=== PATIENT | female | born 1995 | race Caucasian/White ===

== ENCOUNTER 2016-10-09 17:19 | Emergency (ER) | payer OTHER ==
--- NOTE | 2016-10-09 21:46 | ED ORDER SUMMARY ---
..... Patient: LAINE MAC OrderSheet [facility] VisitID: [id number] [address] [place] [address] 21y, F Registration Date/Time: 10/09/2016 ORDER SHEET Weight: 44.4 kg (stated) Allergies: No Known Drug Allergy GENERAL ORDERS: CBC w Diff Urgent (19:19 10/09/2016 Gilberto BALLESTEROS) (Ack 19:22 Isabella) (19:54 DDean R.N.) CMP Urgent (19:10/09/2016 Gilberto BALLESTEROS) (Ack 19:22 Isabella) (19:54 DDean R.N.) UA-Culture if indicated Urgent (19:19 10/09/2016 Gilberto BALLESTEROS) (Ack 19:22 Isabella) (19:22 Isabella) Urine Urgent (19:10/09/2016 Gilberto BALLESTEROS) (Ack 19:22 Isabella) (19:54 DDean R.N.) Lipase Urgent (19:10/09/2016 Gilberto BALLESTEROS) (Ack 19:22 Isabella) (19:54 DDean R.N.) MEDICATION ORDERS: IV FLUIDS: IV NS : initial bolus none -, then 1000 mL/hr for 2h (NOW); Urgent (19:19 10/09/2016 Gilberto BALLESTEROS) (Ack 19:24 DDean R.N.) (19:57 DDean R.N.) Zofran IV 8 mg (NOW) (19:20 10/09/2016 Gilberto BALLESTEROS) (Ack 19:24 DDean R.N.) (19:56 DDean R.N.) ORDER SHEET NOTES: [Electronically signed by Cinthya Bianchi R.N. (22:22 10/09/2016)] [Electronically signed by Brady French MD (09:57 10/12/2016)] [Electronically locked/signed by Cinthya Bianchi R.N. (22:22 10/09/2016)]
--- NOTE | 2016-10-09 21:46 | ED CLINICAL REPORT ---
Clinical Report - Physicians/Mid Levels [facility] [address] [place] [address] 10/09/2016 17:19 Patient: LAINE BARCENAS Time Seen: 19:11. Arrived- By private vehicle. Historian- patient. HISTORY OF PRESENT ILLNESS Chief Complaint: ABDOMINAL PAIN. At its maximum, severity described as moderate. When seen in the E.D., severity described as moderate. Modifying factors- (Worse with anxiety). This started several years ago, worse for the last few days and is still present. It has been waxing/waning. It is described as "pain" and it is described as generalized in location. The patient has had nausea and vomiting. No diarrhea. Similar symptoms previously: Many times. REVIEW OF SYSTEMS Uses control pills. No constipation, black stools, difficulty with urination, pain with urination or fever. No headache, sore throat, blurred vision, chest pain or difficulty breathing. No cough, joint pain, chills or back pain. PAST HISTORY PCP: Semar PROBLEMS: Vomiting. Abdominal Pain. Allergic Rhinitis ADDITIONAL SURGERIES: no known surgeries. SOCIAL HISTORY History of drug use daily: marijuana. ADDITIONAL NOTES The nursing notes have been reviewed. PHYSICAL EXAM Vital Signs: 10/09/2016 22:05 BP: 90/58. HR: 70. RR: 16. O2 saturation: 99%. Pain level now: 08/23. 10/09/2016 20:25 BP: 98/63. HR: 73. RR: 16. O2 saturation: 99%. Pain level now: 08/23. 10/09/2016 18:45 BP: 90/53. HR: 68. RR: 18. O2 saturation: 99%. Temp: 98.2 F. Pain level now: 10/23. Appearance: Alert. No acute distress. Eyes: Pupils equal, round and reactive to light. Eyes normal inspection. ENT: Pharynx normal. Neck: Normal inspection. Neck supple. CVS: Normal heart rate and rhythm. Heart sounds normal. Respiratory: No respiratory distress. Breath sounds normal. Abdomen: Soft. Mild tenderness diffusely. Bowel sounds normal. No organomegaly. No mass. Femoral pulses equal. Back: Normal inspection. Skin: Skin warm. Normal skin color. Extremities: Extremities exhibit normal ROM. No lower extremity edema. LABS, X-RAYS, AND EKG Laboratory Tests: UA-Culture if indicated: (KLAUS: 10/09/2016 18:30) ( [employer] 10/09/2016 20:16) Final results Test Result Flag Units (Reference) URINE COLOR YELLOW URINE APPEARANCE CLEAR URINE GLUCOSE NEGATIVE (NEGATIVE) URINE BILIRUBIN NEGATIVE (NEGATIVE) URINE KETONE NEGATIVE (NEGATIVE) URINE SPECIFIC GRAVITY >= 1.030 (1.010-1.030) URINE PH 6.5 (5.0-8.0) URINE PROTEIN 2+ (NEGATIVE) URINE UROBILINOGEN 0.2 EU/dL (0.2-1.0) URINE NITRITE NEGATIVE (NEGATIVE) URINE BLOOD NEGATIVE (NEGATIVE) URINE LEUK ESTERASE NEGATIVE (NEGATIVE) URINE RBC NONE SEEN rbc/hpf (0-1) URINE WBC 0-1 wbc/hpf (0-1) URINE EPITHELIAL CELLS 0-1 EPI/hpf (0-5) URINE BACTERIA FEW (1+) (NONE SEEN) URINE COMMENT CULT NOT INDICATED 1+ MUCUSURINE CULTURES ARE SET-UP BASED ON THE FOLLOWING CRITERIA:POSITIVE NITRITEPOSITIVE LEUKOCYTE ESTERASEGREATER THAN 10 WHITE BLOOD CELLSMODERATE (2+) OR GREATER BACTERIA Urine: (KLAUS: 10/09/2016 18:30) ( [employer] 10/09/2016 20:08) Final results Test Result Flag Units (Reference) URINE NEGATIVE CBC w Diff: (KLAUS: 10/09/2016 19:30) ( [employer] 10/09/2016 20:05) Final results Test Result Flag Units (Reference) WHITE BLOOD COUNT 8.5 K/uL (4.5-11.5) RED BLOOD COUNT 3.68 L M/uL (4.00-5.20) HEMOGLOBIN 11.4 L gm/dL (12.0-16.0) HEMATOCRIT 33.4 L % (36.0-46.0) MEAN CELL VOLUME 91 fL (80-100) MEAN CORPUSCULAR HGB 31 pg (26-34) MEAN CORPUSCULAR HGB CONC 34 g/dL (31-37) RED CELL DISTRIBUTION WIDTH 12.6 % (11.6-14.8) PLATELET COUNT 263 K/uL (150-400) NEUTROPHIL % 84.8 H % (50-75) LYMPH % 10.8 L % (25-40) MONO % 4.0 % (3-14) EOSINOPHIL % 0 % (0-4) BASOPHIL % 0.4 % (0-2) CMP: (KLAUS: 10/09/2016 19:30) ( MsgRcvd 10/09/2016 20:17) Final results Test Result Flag Units (Reference) GLUCOSE 96 mg/dL (70-110) BUN 9 mg/dL (7-18) CREATININE 0.8 mg/dL (0.6-1.3) Estimated GFR >60 mL/min Estimated GFR- >60 mL/min Note: Persistent reduction over 3 months in eGFR<60 mL/min/1.73 m2 defines CKD. Patients with eGFR values>=60 mL/min/1.73 m2 may also have CKD if evidence ofpersistent proteinuria. Additional information may be foundat www.[email or web address].org. SODIUM 138 mmol/L (136-145) POTASSIUM 3.6 mmol/L (3.5-5.1) CHLORIDE 105 mmol/L (98-107) CARBON DIOXIDE 24 mmol/L (21-32) CALCIUM 9.2 mg/dL (8.5-10.1) TOTAL PROTEIN 7.3 g/dL (6.4-8.2) ALBUMIN 3.7 g/dL (3.3-5.0) BILIRUBIN, TOTAL 0.5 mg/dL (0.0-1.0) ALKALINE PHOSPHATASE 73 U/L (46-116) AST (SGOT) 14 L U/L (15-37) ALT (SGPT) 24 U/L (12-78) LIPASE 97 U/L (73-393) . PROGRESS AND PROCEDURES Course of Care: 21:14 10/09/16. second exam is benign. Ms. Barcenas does not have an acute surgical abdomen. I have urged her to completely abstain from marijuana for at least one month. I explained that marijuana can be associated with abdominal pain nausea and vomiting in some people. She may well need to be referred to a mucker operator by the physicians at [facility]. CLINICAL IMPRESSION Abdominal pain. INSTRUCTIONS Do not work today. (I DO NOT THINK YOU HAVE AN ACUTE SURGICAL EMERGENCY. YOU DO HAVE A DIFFICULT ABDOMINAL PAIN PROBLEM. YOU SHOULD TRY ONE MONTH WITHOUT ANY CANNABIS. YOU SHOULD DISCUSS REFERRAL TO A CHIEF PAYROLL CLERK WITH YOUR PCP. RECHECK IF NOT SOME BETTER IN 24 HOURS). Prescription Medications: Zofran 4 mg: Take 1 orally every six hours as needed for nausea/vomiting. Dispense ten (10). No refills. Substitution is permissible. Follow-up: Follow up with doctor DR MCKEON. Understanding of the discharge instructions verbalized by patient and family. (Electronically signed by Brady French MD 10/12/2016 9:57)
--- NOTE | 2016-10-09 21:46 | ED NURSING NOTES ---
Clinical Report - Nurses [facility] [address] [place] [address] 10/09/2016 17:19 Patient: LAINE MAC TRIAGE Triage time 1840. Acuity: LEVEL 3. Chief Complaint: ABDOMINAL PAIN, NAUSEA and VOMITING. --18:50 Cinthya Bianchi R.N. 18:45 10/09/16. BP: 90/53. HR: 68. RR: 18. O2 saturation: 99%. Temp: 98.2 F. Pain level now: 10/23. --18:50 Cinthya Bianchi R.N. Weight: 44.4 kg stated. Height/Length: 62 inches Per Patient. BMI: 17.9. --18:47 Cinthya Bianchi R.N. Medications BC pills. --18:46 Cinthya Bianchi R.N. Famotidine Oral 40 mg, at bedtime. --18:47 Cinthya Bianchi R.N. Allergies No Known Drug Allergy. --18:46 Cinthya Bianchi R.N. History Arrived by private vehicle. Historian: patient. Accompanied by (mom will come). [facility] Onset. (1400). ( pt frequently happens with anxiety). She has had abdominal pain (low abd pain across the whole stomach). ( states she has been having stomach problems off and on for the last 5 years, mostly related to food allergies). PAST MEDICAL HX: Last normal menstrual period- 2 weeks ago. SURGERY HX: No history of previous surgery. SOCIAL HX: Never smoker. History of drug use: marijuana. No alcohol use. --18:50 Cinthya Bianchi R.N. PROBLEMS: Substance Abuse. Vomiting. Abdominal Pain. Allergic Rhinitis. --18:46 Cinthya Bianchi R.N. ADDITIONAL SURGERIES: no known surgeries. Interventions ID band on patient. To treatment room. --18:50 Cinthya Bianchi R.N. PHYSICAL ASSESSMENT 18:40. Ambulatory to room. Patient gowned. GENERAL / NEURO / PSYCH: Alert. Oriented X 4. Appears in pain. RESPIRATORY: Respirations not labored. CVS: Capillary refill less than 2 seconds. GI / : The patient has had nausea. Abdominal tenderness. SKIN: Skin is warm and dry. --18:51 Cinthya Bianchi R.N. NURSING PROGRESS NOTES 18:40. Monitoring of patient in place. Patient gowned. Head of bed elevated. Reassurance given. Patient identifiers checked. Call light placed in reach. Side rails up. Bed placed in lowest position. Patient placed in chair. Patient ready for evaluation- chart flagged. --18:50 Cinthya Bianchi R.N. Patient ID band checked for patient name and birthdate: family confirmed. Instructions provided to collect clean catch urine and patient verbalized understanding urine collected with return of yellow-colored clear urine; odor is normal; sample sent to lab for urinalysis. Specimen labeled in the presence of the patient. --19:24 Dianne Michelle 19:30 10/09/2016 Site #1 started via IV in the left antecubital space with an 20g angiocath, with aseptic technique and good blood return; one attempt. Blood drawn: rainbow set. Labeled in the presence of the patient and sent to the lab. Saline lock flushed with 10 mL saline. --19:55 Cinthya Bianchi R.N. 19:46 10/09/2016 Zofran (Ondansetron HCl) IVP 8 mg given over 1 minute(s) via site #1. IV patency established. IV site checked: no pain, redness, or swelling. IV flushed thoroughly pre- and post-medication administration. IVP given by RN. --19:56 Cinthya Bianchi R.N. 19:47 10/09/2016 Started bag #1 1000 mL IV Fluids IV NS (Saline); at 1000 mL/hr over 1 hour(s) via site #1 via IV pump. IV patency established. IV site checked: no pain, redness, or swelling. IV flushed thoroughly pre- and post-medication administration. --19:57 Cinthya Bianchi R.N. 20:25 10/09/16. BP: 98/63. HR: 73. RR: 16. O2 saturation: 99%. Temp: deferred. Pain level now: 08/23. Additional comments: nausea resolved. resting quietly, watching tv. --20:26 Cinthya Bianchi R.N. 21:00 10/09/2016 IV Fluids IV NS Discontinued: bag #1 infused upon discharge. Total amount infused: 1000 mL. --22:20 Cinthya Bianchi R.N. 22:00 10/09/2016 Site #1 removed upon discharge. Bandaid applied. --22:18 Cinthya Bianchi R.N. 21:30 pt asking when she can go home, EDNP notified. --22:21 Cinthya Bianchi R.N. DISPOSITION / DISCHARGE 22:05. Condition at departure: improved and stable. No learning barriers present. Discharge instructions provided and reviewed with the patient. Reviewed medication(s) (zofran). Patient verbalized understanding. Written instructions provided in Slovenian. The patient was discharged home and accompanied by parent. She left the Emergency Department ambulatory and via private vehicle. Parent driving. --22:11 Cinthya Bianchi R.N. 22:05 10/09/16. BP: 90/58. HR: 70. RR: 16. O2 saturation: 99%. Temp: deferred. Pain level now: 08/23. --22:11 Cinthya Bianchi R.N. Locked/Released at 10/09/2016 22:22 by Cinthya Bianchi R.N.
--- NOTE | 2016-10-09 21:46 | ED NURSING NOTES ---
Clinical Report - Nurses [facility] [address] [place] [address] 10/09/2016 17:19 Patient: LAINE MAC TRIAGE Triage time 1840. Acuity: LEVEL 3. Chief Complaint: ABDOMINAL PAIN, NAUSEA and VOMITING. --18:50 Cinthya Bianchi R.N. 18:45 10/09/16. BP: 90/53. HR: 68. RR: 18. O2 saturation: 99%. Temp: 98.2 F. Pain level now: 10/23. --18:50 Cinthya Bianchi R.N. Weight: 44.4 kg stated. Height/Length: 62 inches Per Patient. BMI: 17.9. --18:47 Cinthya Bianchi R.N. Medications BC pills. --18:46 Cinthya Bianchi R.N. Famotidine Oral 40 mg, at bedtime. --18:47 Cinthya Bianchi R.N. Allergies No Known Drug Allergy. --18:46 Cinthya Bianchi R.N. History Arrived by private vehicle. Historian: patient. Accompanied by (mom will come). [facility] Onset. (1400). ( pt frequently happens with anxiety). She has had abdominal pain (low abd pain across the whole stomach). ( states she has been having stomach problems off and on for the last 5 years, mostly related to food allergies). PAST MEDICAL HX: Last normal menstrual period- 2 weeks ago. SURGERY HX: No history of previous surgery. SOCIAL HX: Never smoker. History of drug use: marijuana. No alcohol use. --18:50 Cinthya Bianchi R.N. PROBLEMS: Substance Abuse. Vomiting. Abdominal Pain. Allergic Rhinitis. --18:46 Cinthya Bianchi R.N. ADDITIONAL SURGERIES: no known surgeries. Interventions ID band on patient. To treatment room. --18:50 Cinthya Bianchi R.N. PHYSICAL ASSESSMENT 18:40. Ambulatory to room. Patient gowned. GENERAL / NEURO / PSYCH: Alert. Oriented X 4. Appears in pain. RESPIRATORY: Respirations not labored. CVS: Capillary refill less than 2 seconds. GI / : The patient has had nausea. Abdominal tenderness. SKIN: Skin is warm and dry. --18:51 Cinthya Bianchi R.N. NURSING PROGRESS NOTES 18:40. Monitoring of patient in place. Patient gowned. Head of bed elevated. Reassurance given. Patient identifiers checked. Call light placed in reach. Side rails up. Bed placed in lowest position. Patient placed in chair. Patient ready for evaluation- chart flagged. --18:50 Cinthya Bianchi R.N. Patient ID band checked for patient name and birthdate: family confirmed. Instructions provided to collect clean catch urine and patient verbalized understanding urine collected with return of yellow-colored clear urine; odor is normal; sample sent to lab for urinalysis. Specimen labeled in the presence of the patient. --19:24 Dianne Michelle 19:30 10/09/2016 Site #1 started via IV in the left antecubital space with an 20g angiocath, with aseptic technique and good blood return; one attempt. Blood drawn: rainbow set. Labeled in the presence of the patient and sent to the lab. Saline lock flushed with 10 mL saline. --19:55 Cinthya Bianchi R.N. 19:46 10/09/2016 Zofran (Ondansetron HCl) IVP 8 mg given over 1 minute(s) via site #1. IV patency established. IV site checked: no pain, redness, or swelling. IV flushed thoroughly pre- and post-medication administration. IVP given by RN. --19:56 Cinthya Bianchi R.N. 19:47 10/09/2016 Started bag #1 1000 mL IV Fluids IV NS (Saline); at 1000 mL/hr over 1 hour(s) via site #1 via IV pump. IV patency established. IV site checked: no pain, redness, or swelling. IV flushed thoroughly pre- and post-medication administration. --19:57 Cinthya Bianchi R.N. 20:25 10/09/16. BP: 98/63. HR: 73. RR: 16. O2 saturation: 99%. Temp: deferred. Pain level now: 08/23. Additional comments: nausea resolved. resting quietly, watching tv. --20:26 Cinthya Bianchi R.N. 21:00 10/09/2016 IV Fluids IV NS Discontinued: bag #1 infused upon discharge. Total amount infused: 1000 mL. --22:20 Cinthya Bianchi R.N. 22:00 10/09/2016 Site #1 removed upon discharge. Bandaid applied. --22:18 Cinthya Bianchi R.N. 21:30 pt asking when she can go home, EDNP notified. --22:21 Cinthya Bianchi R.N. DISPOSITION / DISCHARGE 22:05. Condition at departure: improved and stable. No learning barriers present. Discharge instructions provided and reviewed with the patient. Reviewed medication(s) (zofran). Patient verbalized understanding. Written instructions provided in Ukrainian. The patient was discharged home and accompanied by parent. She left the Emergency Department ambulatory and via private vehicle. Parent driving. --22:11 Cinthya Bianchi R.N. 22:05 10/09/16. BP: 90/58. HR: 70. RR: 16. O2 saturation: 99%. Temp: deferred. Pain level now: 08/23. --22:11 Cinthya Bianchi R.N. Locked/Released at 10/09/2016 22:22 by Cinthya Bianchi R.N.
--- NOTE | 2016-10-09 21:46 | ED ORDER SUMMARY ---
..... Patient: LAINE MAC OrderSheet [facility] VisitID: [id number] [address] [place] [address] 21y, F Registration Date/Time: 10/09/2016 ORDER SHEET Weight: 44.4 kg (stated) Allergies: No Known Drug Allergy GENERAL ORDERS: CBC w Diff Urgent (19:19 10/09/2016 Gilberto BALLESTEROS) (Ack 19:22 Isabella) (19:54 DDean R.N.) CMP Urgent (19:10/09/2016 Gilberto BALLESTEROS) (Ack 19:22 Isabella) (19:54 DDean R.N.) UA-Culture if indicated Urgent (19:19 10/09/2016 Gilberto BALLESTEROS) (Ack 19:22 Isabella) (19:22 Isabella) Urine Urgent (19:10/09/2016 Gilberto BALLESTEROS) (Ack 19:22 Isabella) (19:54 DDean R.N.) Lipase Urgent (19:10/09/2016 Gilberto BALLESTEROS) (Ack 19:22 Isabella) (19:54 DDean R.N.) MEDICATION ORDERS: IV FLUIDS: IV NS : initial bolus none -, then 1000 mL/hr for 2h (NOW); Urgent (19:19 10/09/2016 Gilberto BALLESTEROS) (Ack 19:24 DDean R.N.) (19:57 DDean R.N.) Zofran IV 8 mg (NOW) (19:20 10/09/2016 Gilberto BALLESTEROS) (Ack 19:24 DDean R.N.) (19:56 DDean R.N.) ORDER SHEET NOTES: [Electronically signed by Cinthya Bianchi R.N. (22:22 10/09/2016)] [Electronically signed by Brady French MD (09:57 10/12/2016)] [Electronically locked/signed by Cinthya Bianchi R.N. (22:22 10/09/2016)]
--- NOTE | 2016-10-09 21:46 | ED CLINICAL REPORT ---
Clinical Report - Physicians/Mid Levels [facility] [address] [place] [address] 10/09/2016 17:19 Patient: LAINE BARCENAS Time Seen: 19:11. Arrived- By private vehicle. Historian- patient. HISTORY OF PRESENT ILLNESS Chief Complaint: ABDOMINAL PAIN. At its maximum, severity described as moderate. When seen in the E.D., severity described as moderate. Modifying factors- (Worse with anxiety). This started several years ago, worse for the last few days and is still present. It has been waxing/waning. It is described as "pain" and it is described as generalized in location. The patient has had nausea and vomiting. No diarrhea. Similar symptoms previously: Many times. REVIEW OF SYSTEMS Uses control pills. No constipation, black stools, difficulty with urination, pain with urination or fever. No headache, sore throat, blurred vision, chest pain or difficulty breathing. No cough, joint pain, chills or back pain. PAST HISTORY PCP: Semar PROBLEMS: Vomiting. Abdominal Pain. Allergic Rhinitis ADDITIONAL SURGERIES: no known surgeries. SOCIAL HISTORY History of drug use daily: marijuana. ADDITIONAL NOTES The nursing notes have been reviewed. PHYSICAL EXAM Vital Signs: 10/09/2016 22:05 BP: 90/58. HR: 70. RR: 16. O2 saturation: 99%. Pain level now: 08/23. 10/09/2016 20:25 BP: 98/63. HR: 73. RR: 16. O2 saturation: 99%. Pain level now: 08/23. 10/09/2016 18:45 BP: 90/53. HR: 68. RR: 18. O2 saturation: 99%. Temp: 98.2 F. Pain level now: 10/23. Appearance: Alert. No acute distress. Eyes: Pupils equal, round and reactive to light. Eyes normal inspection. ENT: Pharynx normal. Neck: Normal inspection. Neck supple. CVS: Normal heart rate and rhythm. Heart sounds normal. Respiratory: No respiratory distress. Breath sounds normal. Abdomen: Soft. Mild tenderness diffusely. Bowel sounds normal. No organomegaly. No mass. Femoral pulses equal. Back: Normal inspection. Skin: Skin warm. Normal skin color. Extremities: Extremities exhibit normal ROM. No lower extremity edema. LABS, X-RAYS, AND EKG Laboratory Tests: UA-Culture if indicated: (KLAUS: 10/09/2016 18:30) ( [facility] 10/09/2016 20:16) Final results Test Result Flag Units (Reference) URINE COLOR YELLOW URINE APPEARANCE CLEAR URINE GLUCOSE NEGATIVE (NEGATIVE) URINE BILIRUBIN NEGATIVE (NEGATIVE) URINE KETONE NEGATIVE (NEGATIVE) URINE SPECIFIC GRAVITY >= 1.030 (1.010-1.030) URINE PH 6.5 (5.0-8.0) URINE PROTEIN 2+ (NEGATIVE) URINE UROBILINOGEN 0.2 EU/dL (0.2-1.0) URINE NITRITE NEGATIVE (NEGATIVE) URINE BLOOD NEGATIVE (NEGATIVE) URINE LEUK ESTERASE NEGATIVE (NEGATIVE) URINE RBC NONE SEEN rbc/hpf (0-1) URINE WBC 0-1 wbc/hpf (0-1) URINE EPITHELIAL CELLS 0-1 EPI/hpf (0-5) URINE BACTERIA FEW (1+) (NONE SEEN) URINE COMMENT CULT NOT INDICATED 1+ MUCUSURINE CULTURES ARE SET-UP BASED ON THE FOLLOWING CRITERIA:POSITIVE NITRITEPOSITIVE LEUKOCYTE ESTERASEGREATER THAN 10 WHITE BLOOD CELLSMODERATE (2+) OR GREATER BACTERIA Urine: (KLAUS: 10/09/2016 18:30) ( [facility] 10/09/2016 20:08) Final results Test Result Flag Units (Reference) URINE NEGATIVE CBC w Diff: (KLAUS: 10/09/2016 19:30) ( [facility] 10/09/2016 20:05) Final results Test Result Flag Units (Reference) WHITE BLOOD COUNT 8.5 K/uL (4.5-11.5) RED BLOOD COUNT 3.68 L M/uL (4.00-5.20) HEMOGLOBIN 11.4 L gm/dL (12.0-16.0) HEMATOCRIT 33.4 L % (36.0-46.0) MEAN CELL VOLUME 91 fL (80-100) MEAN CORPUSCULAR HGB 31 pg (26-34) MEAN CORPUSCULAR HGB CONC 34 g/dL (31-37) RED CELL DISTRIBUTION WIDTH 12.6 % (11.6-14.8) PLATELET COUNT 263 K/uL (150-400) NEUTROPHIL % 84.8 H % (50-75) LYMPH % 10.8 L % (25-40) MONO % 4.0 % (3-14) EOSINOPHIL % 0 % (0-4) BASOPHIL % 0.4 % (0-2) CMP: (KLAUS: 10/09/2016 19:30) ( MsgRcvd 10/09/2016 20:17) Final results Test Result Flag Units (Reference) GLUCOSE 96 mg/dL (70-110) BUN 9 mg/dL (7-18) CREATININE 0.8 mg/dL (0.6-1.3) Estimated GFR >60 mL/min Estimated GFR- >60 mL/min Note: Persistent reduction over 3 months in eGFR<60 mL/min/1.73 m2 defines CKD. Patients with eGFR values>=60 mL/min/1.73 m2 may also have CKD if evidence ofpersistent proteinuria. Additional information may be foundat [email or web address].org. SODIUM 138 mmol/L (136-145) POTASSIUM 3.6 mmol/L (3.5-5.1) CHLORIDE 105 mmol/L (98-107) CARBON DIOXIDE 24 mmol/L (21-32) CALCIUM 9.2 mg/dL (8.5-10.1) TOTAL PROTEIN 7.3 g/dL (6.4-8.2) ALBUMIN 3.7 g/dL (3.3-5.0) BILIRUBIN, TOTAL 0.5 mg/dL (0.0-1.0) ALKALINE PHOSPHATASE 73 U/L (46-116) AST (SGOT) 14 L U/L (15-37) ALT (SGPT) 24 U/L (12-78) LIPASE 97 U/L (73-393) . PROGRESS AND PROCEDURES Course of Care: 21:14 10/09/16. second exam is benign. Ms. Barcenas does not have an acute surgical abdomen. I have urged her to completely abstain from marijuana for at least one month. I explained that marijuana can be associated with abdominal pain nausea and vomiting in some people. She may well need to be referred to a idea worker by the physicians at [facility]. CLINICAL IMPRESSION Abdominal pain. INSTRUCTIONS Do not work today. (I DO NOT THINK YOU HAVE AN ACUTE SURGICAL EMERGENCY. YOU DO HAVE A DIFFICULT ABDOMINAL PAIN PROBLEM. YOU SHOULD TRY ONE MONTH WITHOUT ANY CANNABIS. YOU SHOULD DISCUSS REFERRAL TO A HOME ECONOMICS EXTENSION WORKER WITH YOUR PCP. RECHECK IF NOT SOME BETTER IN 24 HOURS). Prescription Medications: Zofran 4 mg: Take 1 orally every six hours as needed for nausea/vomiting. Dispense ten (10). No refills. Substitution is permissible. Follow-up: Follow up with doctor DR MCKEON. Understanding of the discharge instructions verbalized by patient and family. (Electronically signed by Brady French MD 10/12/2016 9:57)
--- NOTE | 2016-10-12 09:57 | ED MED RECONCILIATION SUMMARY ---
Patient: LAINE MAC Medication Reconciliation Report [facility] VisitID: [id number] [address] [place] [address] 21y, F Registration Date/Time: 10/09/2016 Weight: 44.4 kg Height/Length: 62 in. BMI: 17.9 ALLERGIES: No Known Drug Allergy The patient's Home Medications are listed below: THE FOLLOWING MEDICATIONS NEED TO BE RECONCILED: BC pills Famotidine Oral 40 mg, at bedtime The source(s) of the original Home Medication information: Not obtained. The following Medications were given to the patient in the Emergency Department: Zofran [IVP] IVP 8 mg, administered: 10/09/2016 7:46:00 PM IV NS IV Fluids bolus 0, then 1000 mL/hr, administered: 10/09/2016 7:47:00 PM The following Medications were prescribed to the patient: Zofran 4 mg: Take 1 orally every six hours as needed for nausea/vomiting. Dispense ten (10). No refills. Substitution is permissible. -- Brady French MD
--- NOTE | 2016-10-12 09:57 | ED MED RECONCILIATION SUMMARY ---
Patient: LAINE MAC Medication Reconciliation Report [facility] VisitID: [id number] [address] [place] [address] 21y, F Registration Date/Time: 10/09/2016 Weight: 44.4 kg Height/Length: 62 in. BMI: 17.9 ALLERGIES: No Known Drug Allergy The patient's Home Medications are listed below: THE FOLLOWING MEDICATIONS NEED TO BE RECONCILED: BC pills Famotidine Oral 40 mg, at bedtime The source(s) of the original Home Medication information: Not obtained. The following Medications were given to the patient in the Emergency Department: Zofran [IVP] IVP 8 mg, administered: 10/09/2016 7:46:00 PM IV NS IV Fluids bolus 0, then 1000 mL/hr, administered: 10/09/2016 7:47:00 PM The following Medications were prescribed to the patient: Zofran 4 mg: Take 1 orally every six hours as needed for nausea/vomiting. Dispense ten (10). No refills. Substitution is permissible. -- Brady French MD
--- NOTE | 2016-10-12 09:57 | ED MAR SUMMARY ---
..... Medication Administration Record [facility] [address] [place] [address] Patient: LAINE MAC Visit ID: [id number] 21y, F Weight: 44.4 kg Height/Length: 62 in BMI: 17.9 ALLERGIES: No Known Drug Allergy Given 19:46 10/09/2016 Cinthya Bianchi R.N. Medication Administered: ZOFRAN [IVP] (ONDANSETRON HCL), Dose: 8 mg IVP over 1 minute(s), Site: #1 left AC. Medication Ordered: Zofran IV 8 mg (NOW). Start 19:47 10/09/2016 Cinthya Bianchi, RSilvino, Stop 21:00 10/09/2016 Cinthya Bianchi R.N. Medication Administered: IV NS (SALINE), Dose: IV Fluids over 1 hour(s), Rate: 1000 mL/hr, Dispensed: 1000 mL bag, Site: #1 left AC. Medication Ordered: IV NS : initial bolus none -, then 1000 mL/hr for 2h (NOW); Urgent.
--- NOTE | 2016-10-12 09:57 | ED MAR SUMMARY ---
..... Medication Administration Record [facility] [address] [place] [address] Patient: LAINE MAC Visit ID: [id number] 21y, F Weight: 44.4 kg Height/Length: 62 in BMI: 17.9 ALLERGIES: No Known Drug Allergy Given 19:46 10/09/2016 Cinthya Bianchi R.N. Medication Administered: ZOFRAN [IVP] (ONDANSETRON HCL), Dose: 8 mg IVP over 1 minute(s), Site: #1 left AC. Medication Ordered: Zofran IV 8 mg (NOW). Start 19:47 10/09/2016 Cinthya Bianchi, RSilvino, Stop 21:00 10/09/2016 Cinthya Bianchi R.N. Medication Administered: IV NS (SALINE), Dose: IV Fluids over 1 hour(s), Rate: 1000 mL/hr, Dispensed: 1000 mL bag, Site: #1 left AC. Medication Ordered: IV NS : initial bolus none -, then 1000 mL/hr for 2h (NOW); Urgent.
--- NOTE | 2016-10-12 09:57 | ED DISCHARGE INSTRUCTIONS ---
Patient: LAINE MAC General Instructions [facility] VisitID: [id number] [place] [address] 21y, F Registration Date/Time: 10/09/2016 Abdominal pain. INSTRUCTIONS Do not work today. (I DO NOT THINK YOU HAVE AN ACUTE SURGICAL EMERGENCY. YOU DO HAVE A DIFFICULT ABDOMINAL PAIN PROBLEM. YOU SHOULD TRY ONE MONTH WITHOUT ANY CANNABIS. YOU SHOULD DISCUSS REFERRAL TO A [facility] WITH YOUR PCP. RECHECK IF NOT SOME BETTER IN 24 HOURS). Prescription Medications: Zofran 4 mg: Take 1 orally every six hours as needed for nausea/vomiting. Dispense ten (10). No refills. Substitution is permissible. Follow-up: Follow up with doctor DR MCKEON. Understanding of the discharge instructions verbalized by patient and family. ADDITIONAL INFORMATION Abdominal Pain, Unknown Cause (Female) The exact cause of your abdominal (stomach) pain is not certain. This does not mean that this is something to worry about, or the right tests were not done. Everyone likes to know the exact cause of the problem, but sometimes with abdominal pain, there is no clear-cut cause, and this could be a good thing. The good news is that your symptoms can be treated, and you will feel better. Your condition does not seem serious now; however, sometimes the signs of a serious problem may take more time to appear. For this reason,it is important for you to watch for any new symptoms, problems,or worsening of your condition. Over the next few days, the abdominal pain may come and go, or be continuous. Other common symptoms can include nausea and vomiting. Sometimes it can be difficult to tell if you feel nauseous, you may just feel bad and not associate that feeling with nausea. Constipation, diarrhea, and a fever may go along with the pain. The pain may continue even if treated correctly over the following days. Depending on how things go, sometimes the cause can become clear and may require further or different treatment. Additional evaluations, medications, or tests may be needed. Home care Your health care provider may prescribe medications for pain, symptoms, or an infection. Follow the health care provider's instructions for taking these medications. General care Rest until your next exam. No strenuous activities. Try to find positions that ease discomfort. A small pillow placed on the abdomen may help relieve pain. Something warm on your abdomen (such as a heating pad) may help, but be careful not to burn yourself. Diet Do not force yourself to eat, especially if having cramps, vomiting, or diarrhea. Water is important so you do not get dehydrated. Soup may also be good. Sports drinks may also help, especially if they are not too acidic. Make sure you don't drink sugary drinks as this can make things worse. Take liquids in small amounts. Do not guzzle them. Caffeine sometimes makes the pain and cramping worse. Avoid dairy products if you have vomiting or diarrhea. Don't eat large amounts at a time. Wait a few minutes between bites. Eat a diet low in fiber (called a low-residue diet). Foods allowed include refined breads, white rice, fruit and vegetable juices without pulp, tender meats. These foods will pass more easily through the intestine. Avoid whole-grain foods, whole fruits and vegetables, meats, seeds and nuts, fried or fatty foods, dairy, alcohol and spicy foods until your symptoms go away. Follow-up care Follow up with your health care provider as instructed, or if your pain does not begin to improve in the next 24 hours. When to seek medical care Seek prompt medical care if any of the following occur: Pain gets worse or moves to the right lower abdomen New or worsening vomiting or diarrhea Swelling of the abdomen Unable to pass stool for more than three days Fever of 100.4F (38C) or higher, or as directed by your healthcare provider. Blood in vomit or bowel movements (dark red or black color) Jaundice (yellow color of eyes and skin) Weakness, dizziness Chest, arm, back, neck or jaw pain Unexpected vaginal bleeding or missed period Call 911 Call emergency services if any of the following occur: Trouble breathing Confusion Fainting or loss of consciousness Rapid heart rate Seizure You have been given the following additional information: Abdominal Pain, Unknown Cause, (Female) Do not work today. (Electronically signed by Brady French MD 10/12/2016 9:57)
== END 2016-10-09 22:05 | disposition home or self-care (01) ==
LOC: ED SRH 17:19
DX: R10.84 Generalized abdominal pain (principal); Z79.899 Other long term (current) drug therapy
CPT/HCPCS: 90004; 90100; 92235; 93070; 95059